=== PATIENT | female | born 2000 | race African-American/Black ===

== ENCOUNTER 2020-12-04 12:45 | Emergency (ER) | payer BC ==
[~2020-12-04] VITALS: Ht 170.2 cm; Wt 144.0 kg
[2020-12-04] MEDS ORDERED: KETOROLAC 60MG/2ML VIAL IM ONE (14:15)
[2020-12-04] MEDS ORDERED: METHOCARBAMOL 500MG TABLET PO ONE (14:15)
[2020-12-04 14:33] VITALS: BP 134/93
[2020-12-04] MEDS ORDERED: NAPR-681 MT (15:22)
[2020-12-04] MEDS ORDERED: METH-773 MT (15:22)
== END 2020-12-04 15:40 | disposition home or self-care (01) ==
LOC: ER 12:45
DX: S16.1XXA Strain of muscle, fascia and tendon at neck level, initial encounter (principal); V43.62XA Car passenger injured in collision with other type car in traffic accident, initial encounter; Y93.89 Activity, other specified; Y92.488 Other paved roadways as the place of occurrence of the external cause
CPT/HCPCS: 81025; 96372; 99283; J1885

== ENCOUNTER 2022-10-10 14:01 | Emergency (ER) | payer MEDICAID ==
[~2022-10-10] VITALS: Ht 170.2 cm; Wt 143.0 kg
[~2022-10-10 14:01] MED LIST: METH-773 MT; NAPR-681 MT
[2022-10-10] MEDS ORDERED: SODIUM CHLORIDE 0.9% 1,000 ML IV ONE (14:30)
[2022-10-10] MEDS ORDERED: ONDANSETRON HCL 4MG/2ML INJ IV ONE (14:30)
[2022-10-10 14:34] LABS: HEMATOCRIT. 42.2 % (36.0-48.0); HEMOGLOBIN. 14.4 g/dL (12.0-16.0); MEAN CORPUSCULAR HEMOGLOBIN 30.7 pg (28.0-32.0); MEAN CORPUSCULAR VOLUME 90.1 fL (81.0-99.0); MEAN PLATELET VOLUME 8.2 fl (7.4-10.4); PLATELET 336 x1000/uL (130-400); RED BLOOD CELL COUNT 4.68 mill/uL (4.2-5.4); RED CELL DISTRIBUTION WIDTH 12.2 % (11.6-14.6)
[2022-10-10 14:43] LABS: CHLORIDE 109 mEq/L (98-107)
[2022-10-10 14:50] LABS: ETHANOL BLOOD < 10 mg/dL
[2022-10-10 15:08] LABS: PLATELET ESTIMATE NORMAL
[2022-10-10] MEDS ORDERED: ONDA4TAB11 PO (15:39)
[2022-10-10 16:48] VITALS: BP 132/82
== END 2022-10-10 17:00 | disposition home or self-care (01) ==
LOC: ER 14:01
DX: R11.2 Nausea with vomiting, unspecified (principal); R19.7 Diarrhea, unspecified
CPT/HCPCS: 36415; 80053; 80320; 83690; 85025; 96361; 96374; 99283; J2405; J7030; G0480